=== PATIENT | male | born 1960 | race Caucasian/White ===

== ENCOUNTER 2020-12-24 21:50 | Emergency (ER) | payer OTHER, SELFPAY ==
--- NOTE | ~2020-12-24 | XR_ITS ---
EXAMINATION: XR SHOULDER, RIGHT CLINICAL INFORMATION: Status post fall. Painful COMPARISON: None TECHNIQUE: 3 plain film views of the right shoulder. FINDINGS: Humeral head is well-seated within the glenoid fossa. Bone spurring and degenerative changes seen within the glenohumeral joint and milder degenerative changes in the acromioclavicular joint. Visualized right upper ribs unremarkable. XR/XR shoulder RT min 2V IMPRESSION: Degenerative changes but no acute fracture or dislocation seen.
[2020-12-24 21:57] VITALS: BP 145/90; PULSE 85; RESP 18; TEMP 36.6; O2SAT 98; BMI 27.4
--- NOTE | 2020-12-24 23:18 | ED.UPPEXIN ---
HPI - Extremity Injury (Upper) General Chief Complaint: Fall Stated Complaint: Fall/shoulder pain Time Seen by Provider: 12/24/20 23:07 Source: patient Mode of arrival: ambulatory Limitations: no limitations History of Present Illness HPI narrative: Patient slipped on icy steps slightly down with right arm abducted complaining of pain in the right shoulder no other injuries no head injuries no loss of consciousness no significant back pain complaint: injury to: right and shoulder Related Data Previous Rx's Medication Instructions Recorded cyclobenzaprine 10 mg PO Q8H #20 tab 12/24/20 ibuprofen 600 mg PO Q6H PRN #20 tab 12/24/20 oxycodone 5 mg PO Q6H PRN #20 tab 12/24/20 Allergies Allergy/AdvReac Type Severity Reaction Status Date / Time No Known Allergies Allergy Unverified 07/26/20 19:35 [No Known Allergies*] Review of Systems Review of Systems: Yes all other systems are reviewed and are negative PMFSH Past Medical History Medical History No known health problems Social History Social History Advance Directives: No Physical Exam Vital Signs: Vital Signs: Last Vital Signs Temp 97.9 F 12/24/20 21:57 Pulse 85 12/24/20 21:57 Resp 18 12/24/20 21:57 BP 145/90 H 12/24/20 21:57 Pulse Ox 98 12/24/20 21:57 Body Mass Index 27.4 Const: General: healthy appearing, comfortable, no acute distress and well developed Orientation/consciousness: patient oriented x3 HENMT: Head: Yes normocephalic and Yes atraumatic Eyes: General: appearance normal, both eyes and all related structures Neck: Neck: Yes full ROM, No tender and Yes no JVD Chest: Chest palpation & inspection: normal inspection of the chest and normal palpation of entire chest wall Resp: Effort & Inspection: normal respiratory effort Auscultation: clear to auscultation bilaterally Cardio: Rate: regular rate Rhythm: regular rhythm Heart sounds: S1 normal heart sound present and S2 normal heart sound present Peripheral pulses: Peripheral pulses 2+ throughout GI: Inspection: Yes normal to inspection Palpation (GI): Soft to palpation and nontender : General: Yes no CVA tenderness Back/Spine/Pelvis: Back: no CVA tenderness Cervical Spine: cervical ROM normal Thoracic/Lumbar Spine: thoracic and lumbar spine normal to inspection Skin: General skin exam: no rashes or lesions noted Neuro: General: patient oriented x3 and no focal motor deficits Extrem: Shoulder/upper arm images: 1. Right rotator cuff tenderness increased pain on abduction and external rotation no deformity neurovascular intact MDM - Extremity Injury (Upper) MDM Narrative Medical decision making narrative: Patient's right shoulder x-ray negative for any fracture or dislocation. Clinically patient has right rotator cuffs muscle strain. Will give him a sling pain medication was relaxed and advised to follow-up with orthopedics/PCP if pain continues Discharge Plan Discharge Clinical Impression: Rotator cuff (capsule) sprain Qualifiers: Encounter type: initial encounter Laterality: right Qualified Code(s): S43.421A - Sprain of right rotator cuff capsule, initial encounter Patient Disposition: Home, Self-Care Instructions: Rotator Cuff Injury (ED) Additional Instructions: Rest to right arm , wear sling for support. Pain medication as advised. Follow-up with PCP/Orthopedics if pain continues Prescriptions: New cyclobenzaprine 10 mg tablet 10 mg PO Q8H Qty: 20 RF: 0 ibuprofen 600 mg tablet 600 mg PO Q6H PRN (Reason: pain) Qty: 20 RF: 0 oxycodone 5 mg tablet 5 mg PO Q6H PRN (Reason: Pain (Scale Score 7-10)) Qty: 20 RF: 0
[2020-12-24] MEDS: dexAMETHasone 2 MG TABLET 10 MG PO (23:51)
[2020-12-24] MEDS: oxyCODONE HCl Immed Release 5 MG TABLET 10 MG PO (23:51)
[2020-12-24] MEDS: Cyclobenzaprine HCl 10 MG TABLET PO (23:51)
[2020-12-25] VITALS: BP 124/77; PULSE 82; RESP 16; O2SAT 98
== END 2020-12-25 01:08 | disposition home or self-care (01) ==
LOC: HO.ED 23:51
PROVIDERS: Emergency Provider Internal Medicine; PCP Family Medicine
DX: S43.421A Sprain of right rotator cuff capsule, initial encounter (principal); W00.1XXA Fall from stairs and steps due to ice and snow, initial encounter; Y93.9 Activity, unspecified; Y92.018 Other place in single-family (private) house as the place of occurrence of the external cause; Y99.9 Unspecified external cause status
CPT/HCPCS: 73030; 99283; 99284; J8540

== ENCOUNTER → 2021-02-13 14:40 | Outpatient (BNVA) | payer OTHER, SELFPAY | PROVIDERS: PCP Family Medicine; Visit Provider Urology | DX: R31.0 Gross hematuria (principal) | CPT/HCPCS: 81002 ==

== ENCOUNTER → 2021-03-20 14:02 | Outpatient (BNVA) | payer OTHER, SELFPAY | PROVIDERS: PCP Family Medicine; Visit Provider Urology | DX: N30.20 Other chronic cystitis without hematuria (principal) | CPT/HCPCS: 52000; 81002 ==